=== PATIENT | female | born 1940 | race Hispanic/Latino ===

== ENCOUNTER 2017-02-11 09:02 | Outpatient (CLI) | payer MEDICARE, OTHER | END 2017-02-11 09:03 | disposition home or self-care (01) | LOC: BICMAMMO 09:02 | PROVIDERS: ATTEND Family Medicine | DX: Z12.31 Encounter for screening mammogram for malignant neoplasm of breast (principal) | CPT/HCPCS: 77063; 77067 ==

== ENCOUNTER 2017-06-15 14:18 | Outpatient (CLI) | payer MEDICARE, OTHER | END 2017-06-15 14:19 | disposition home or self-care (01) | LOC: BICMAMMO 14:18 | PROVIDERS: ATTEND Family Medicine | DX: Z13.820 Encounter for screening for osteoporosis (principal); Z78.0 Asymptomatic menopausal state; M81.8 Other osteoporosis without current pathological fracture | CPT/HCPCS: 77080 ==

== ENCOUNTER 2018-03-03 14:31 | Outpatient (CLI) | payer MEDICARE | END 2018-03-03 14:32 | disposition home or self-care (01) | LOC: BICMAMMO 14:31 | PROVIDERS: ATTEND Family Medicine | DX: Z12.31 Encounter for screening mammogram for malignant neoplasm of breast (principal); Z98.82 Breast implant status | CPT/HCPCS: 77063; 77067 ==

== ENCOUNTER 2019-06-13 10:17 | Inpatient (IN) | payer MEDICARE, OTHER ==
[~2019-06-13 10:17] MED LIST: EPINEPHrine 1 MG/10 ML Abboject SYRINGE ONE; Sodium Bicarb 50 MEQ/50 ML Abboject 8.4% SYRINGE ONE
[2019-06-13] MEDS ORDERED: EPINEPHrine 1 MG/10 ML Abboject SYRINGE ONE ×2 (10:29→12:14)
[2019-06-13] MEDS ORDERED: Furosemide 40 MG/4 ML VIAL ONE (10:50)
[2019-06-13] MEDS ORDERED: Furosemide 40 MG TAB ONE (10:50)
--- NOTE | 2019-06-13 11:19 | PDOC.FPRHP ---
- History of Present Illness Chief Complaint: Shortness of breath History of Present Illness: History per ER physician and EMS. Patient called EMS this morning for increasing shortness of breath. When EMS arrived she was unresponsive, and her said she had been that way for about 20 minutes. Additional hx obtained from the patient's (Jesus). He states that the patient has been falling several times over the last 2-3 weeks. She would not lose consciousness, but fell due to unknown reasons. She hit her head a couple of times due to this. Prior to the episode today, she had been complaining of SOB before collapsing. He was not able to state for how long she was down. Over the last couple of weeks she had not been feeling well or like herself, but somewhat distraught and unable to give a detailed history. He stated that he still wanted patient to be full code. Called Dr. Morgan, her PCP, and obtained past medical history. Metoprolol tart 100 bID, amlodipine 10mg, lisinopril 20mg, clonidine 0.1 TID, chlorthalidone 12.5mg, zoloft 200mg, famotidine prn, alprazolam prn, aleve prn ED Course: Arrived CPR in progress. Regained pulse. Coded again, and ROSC x2. Total of about 1 hour of CPR in total (EMS + ER) L femoral central line /4 Intubated 06/12 - Allergies/Adverse Reactions Allergies Allergy/AdvReac Type Severity Reaction Status Date / Time aspirin Allergy Verified 06/13/19 11:58 morphine Allergy Verified 06/13/19 17:23 sulfamethoxazole Allergy Verified 06/13/19 17:23 [From Bactrim] trimethoprim [From Bactrim] Allergy Verified 06/13/19 17:23 - Home Medications Medication Instructions Recorded Confirmed Type ALPRAZolam [Xanax] 0.5 mg PO TID PRN 06/13/19 06/13/19 History Amlodipine Besylate [amLODIPine 10 mg PO DAILY 06/13/19 06/13/19 History Besylate] Chlorthalidone 12.5 mg PO DAILY 06/13/19 06/13/19 History Famotidine 20 mg PO BID PRN 06/13/19 06/13/19 History Lisinopril 20 mg PO DAILY 06/13/19 06/13/19 History Metoprolol Tartrate 100 mg PO BID 06/13/19 06/13/19 History Naproxen Sodium [Aleve] 220 mg PO TID PRN 06/13/19 06/13/19 History Sertraline HCl [Zoloft] 200 mg PO DAILY 06/13/19 06/13/19 History cloNIDine [Catapres] 0.1 mg PO TID 06/13/19 06/13/19 History - History PMH: HTN, Stage III CKD, HLD, chronic swelling, GERD. Guitierrez - aortic regurg, palpitations PSH: breast implants FH: father - afib brother - - heart problems and dm Social History: has 2 sons 2 daughters non-smoker, no illicit drug use. has known alcohol use disorder. She is a retired [employer]. 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 Allergirs: aspirin, morhpine makes her crazy, bactrim (nausea/diearrhea) Vaccines: Prevnar 13 in 2014, Pneumovax 2018, Flu shot 2018, tetanus UTD 2016 - Review of Systems ROS unobtainable: due to endotracheal tube - Vital signs BP: 225/136, Pulse: 127, Resp: BAGGING, End-Tidal CO2: 26, Time: 06/13/2019 10:32 - Physical Exam Constitutional: NAD -Constitutional: Sedated and intubated HEENT: normal nasal mucosa, MMM -HEENT: hematoma posterior scalp; dilated pupils; copious secretions Neck: supple, trachea midline -Neck: intubated Heart: RRR, normal S1/S2, no murmurs/rubs/gallops, pulses present Lungs: no respiratory distress -Lungs: On ventilatory support; rales and rhonchi heard bilaterally, worse on right Abdomen: soft Musculoskeletal: normal structure, normal tone -Neurological: Ventilated/sedated - pupils fixed/dilated, no purposeful movement Skin: no rash/lesions, good turgor Heme/Lymphatic: no unusual bruising or bleeding, no purpura FMR H&P: Results - Labs Result Diagrams: 06/13/19 10:56 06/13/19 10:32 - Radiology Interpretation CT scan - head Status: report reviewed by me Chest x-ray Status: report reviewed by me (Bilateral patchy infiltrates, right greater than left. No pneumothoraces or large effusions are seen) FMR H&P: A/P - Problem List (1) History of successful cardiopulmonary resuscitation Current Visit: Yes Status: Acute Code(s): Z92.89 - PERSONAL HISTORY OF OTHER MEDICAL TREATMENT (2) Shortness of breath Current Visit: Yes Status: Acute Code(s): R06.02 - SHORTNESS OF BREATH (3) COVID-19 Current Visit: Yes Status: Suspected Code(s): U07.1 - COVID-19 (4) Hypertension Current Visit: Yes Status: Acute Code(s): I10 - ESSENTIAL (PRIMARY) HYPERTENSION (5) CKD (chronic kidney disease), stage III Current Visit: Yes Status: Acute Code(s): N18.3 - CHRONIC KIDNEY DISEASE, STAGE 3 (MODERATE) (6) Transaminitis Current Visit: Yes Status: Acute Code(s): R74.0 - NONSPEC ELEV OF LEVELS OF TRANSAMNS & LACTIC ACID DEHYDRGNSE (7) Lactic acidosis Current Visit: Yes Status: Acute Code(s): E87.2 - ACIDOSIS (8) GERD (gastroesophageal reflux disease) Current Visit: Yes Status: Acute Code(s): K21.9 - GASTRO-ESOPHAGEAL REFLUX DISEASE WITHOUT ESOPHAGITIS (9) Elevated troponin Current Visit: Yes Status: Acute Code(s): R79.89 - OTHER SPECIFIED ABNORMAL FINDINGS OF BLOOD CHEMISTRY - Plan Cardiopulmonary arrest s/p ROSC x 2 Unsure etiology at this point. CXR showed bilateral patchy infiltrates, right greater than left. No pneumothoraces or large effusions. - Admit to ICU - Pulm consulted, appreciate recommendations - Head CT pending due to hematoma right scalp and recent falls - COVID pending - Patient is intubated (06/12), sedated, has L Femoral central line (06/12) and on epi drip. Continue ventilatory support. ABGs daily. CXR daily. - Palliative care consulted to help with goals of care, family support. Per , patient to remain FULL code. Acute Hypoxic Resp Failure 2/2 above, CAP - see plan above - CXR showing bilateral patchy infiltrates, R>L - Urinary labs pending, procal pending - Will treat with azithro, rocephin, and methylprednisone - Daily CXR, trend procal to guide abx therapy COVID PUI - COVID pending - LDH, ferritin, CRP and procal pending Transaminitis likely 2/2 shock liver - Will continue to monitor Elevated Tropinin likely 2/2 ACS vs active CPR - Will continue to trend Lactic Acidosis LA 13 on arrival - Will continue to trend HTN - aware, will continue to monitor GERD - aware CKD stage 4 - mildly above baseline, will continue to monitor Dispo: admit to ICU, pending clinical course DVT ppx: hold anticoags until head CT, SCDs GI ppx: Pepcid CODE status: FULL PCP: aCthy Case discussed with Dr. Lake Patient seen, examined, and note written by Cony Maurice, PGY2. FMR H&P: Upper Level - Plan Date/Time: 06/13/191118 I, [], have evaluated this patient and agree with findings/plan as outlined by internal medicine veterinary technician resident. Pertinent changes/additions are listed here. Addendum - Attending - Attending Attestation Date/Time: 06/13/19 190 I personally evaluated the patient and discussed the management with Dr. Maurice I agree with the History, Examination, Assessment and Plan documented above with any addition or exceptions noted below - 79 yo female with h/o HTN, CKD stage 3 and HLD presented after c/o SOB and collapse at home. History per ER physician and EMS. Patient called EMS this morning for increasing shortness of breath. When EMS arrived she was unresponsive, and her said she had been that way for about 20 minutes. Additional hx obtained from the patient's (Jesus). He states that the patient has been falling several times over the last 2-3 weeks. She would not lose consciousness, but fell due to unknown reasons. She hit her head a couple of times due to this. Prior to the episode today, she had been complaining of SOB before collapsing. He was not able to state for how long she was down. Over the last couple of weeks she had not been feeling well or like herself, but somewhat distraught and unable to give a detailed history. Afebrile BP 149/73 P88 RR28 93% Exam repeated by me and agree with resident' s findings. Labs: WBC=22.6, H/H=9.7/30.4, Vrc=425, Na= 142, K= 3.8, CO2=11, BUN/ Cr= 43/2.01, Xsto=181 AST/ALT= 408/230, MDZ=0899, trop=1.235, Lactic acid=13. U/ A- 4+prot, 2+ blood, 21-50 WBC, 3+ bactCXR-patchy b/l infiltrates R>L, CT brain - loss of leigh/white differentiation c/w cerebral cytotoxic edema. A/P: 1) Cardiac arrest x 2 s/p ROSC- Admit to ICU. Continue vent support. Cooling protocol initiated. Consult pulmonary. Poor prognosis given evience of cerebral edema and prolonged time of resuscitation. 2) Possible pneumonia- continue Rocephin and zithromax. COVID-19 pending. 3) Hyperglycemia - no history of diabetes, possibly secondary to acute events. Will monitor BG q6 hours.
--- NOTE | 2019-06-13 11:21 | RAD ---
PORTABLE CHEST 1 VIEW: Date: 06/13/2019 Time: 1117 hours HISTORY: Respiratory failure. FINDINGS/IMPRESSION: There is an endotracheal tube with tip just below the level of the clavicular heads. Nasogastric tube can be traced into the stomach with tip excluded from the film. The heart size is normal. There are bilateral patchy infiltrates, right greater than left. No pneumothoraces or large effusions are seen. POS: MZA
[2019-06-13 11:30] LABS: Hemoglobin 9.7 g/dL (12.0-16.0); Mean Corpuscular HGB CONC 31.9 g/dL (32.0-36.0); Mean Corpuscular Hemoglobin 29.3 pg (27.0-31.0); Mean Corpuscular Volume 91.7 fL (78.0-98.0); Mean Platelet Volume 8.2 fL (7.4-10.4); Platelet Count 165 thou/uL (130-400); RBC Distribution Width 12.7 % (11.5-14.5); Red Blood Cell (RBC) Count 3.32 mill/uL (4.20-5.40); White Blood Cell (WBC) Count 22.6 thou/uL (4.8-10.8)
[2019-06-13 11:36] LABS: INR-International Normal Ratio 1.5; Prothrombin Time 17.8 SEC (12.0-14.7)
[2019-06-13 11:37] LABS: PTT 75.4 SEC (22.9-36.1)
[2019-06-13 11:50] LABS: ALT (SGPT) 230 U/L (8-55); AST (SGOT) 408 U/L (5-34); Alkaline Phosphatase 157 U/L (40-110); Anion Gap 22 mmol/L (10-20); BUN (Urea Nitrogen) 43 mg/dL (9.8-20.1); Bilirubin, Total 0.3 mg/dL (0.2-1.2); CK (CPK) 362 U/L (29-168); Calc. Creatinine Clearance 0 mL/min (70-130); Calcium 8.3 mg/dL (7.8-10.44); Carbon Dioxide 11 mmol/L (23-31); Chloride 113 mmol/L (98-107); Estimated GFR-MDRD 24; Globulin 1.9 g/dL (2.4-3.5); Glucose 295 mg/dL (83-110); Lipase 64 U/L (8-78); Potassium 3.8 mmol/L (3.5-5.1); Protein, Total 3.9 g/dL (6.0-8.3); Sodium 142 mmol/L (136-145)
[2019-06-13 11:57] LABS: Actual Bicarbonate (HCO3a) 9.3 mEq/L (22-28); Analyzer IN Cardio ER; Base Excess (BEa) -21.1 mEq/L (-2.0 to +3.0); Calcium, Ionized 1.29 mmol/L (1.12-1.30); Carboxyhemoglobin (COHb) 0.1 gm% (0.0-3.0); Hemoglobin (Hb) 10.4 g/dL (12.0-16.0); O2 Tension (PaO2) 367.5 mmHg (> 60.0); Potassium - ABG Lab 3.97 mmol/L (3.70-5.30); pH, Arterial 6.99 (7.35-7.45)
[2019-06-13 11:58] LABS: Puncture Site RRA
[2019-06-13 12:06] LABS: Band 4 % (5-11); Lymphocytes 50 % (21-51); MDiff Complete? YES; Monocytes 6 % (0-10); Myelocyte 1 % (0-0); Neutrophil 39 % (42-75); Polychromasia SLIGHT = 2-3 cells (100X) (0-2/hpf)
[2019-06-13 12:19] LABS: CKMB 18.3 ng/mL (0-6.6)
[2019-06-13] MEDS ORDERED: CCU Electrolyte Replacement 1 EACH IVPB ONE (13:10)
[2019-06-13] MEDS ORDERED: Ondansetron PF 4 MG/2 ML Vial IVP PRN (13:10)
[2019-06-13] MEDS ORDERED: Acetaminophen 650 MG Suppository PR PRN (13:12)
[2019-06-13] MEDS ORDERED: Ventilator Sedation Protocol 1 EACH FS SCH (13:15)
[2019-06-13] MEDS ORDERED: Morphine 2 MG/ML SYRINGE SLOW IVP PRN (13:27)
[2019-06-13] MEDS ORDERED: Lorazepam 2 MG/ML VIAL SLOW IVP PRN (13:27)
[2019-06-13] MEDS ORDERED: Fentanyl BOLUS 250 ML IVPB PRN (13:27)
[2019-06-13] MEDS ORDERED: DISCONTINUE PREVIOUS NARCOTIC PAIN MEDICATIONS AND BENZODIAZEPINES FS SCH (13:27)
[2019-06-13] MEDS ORDERED: Propofol BOLUS 1,000 MG/100 ML VIAL IV PRN (13:27)
[2019-06-13] MEDS ORDERED: fentaNYL Citrate/PF 2,000 MCG in Sodium Chloride 0.9% 60 ML IV SCH (13:27)
[2019-06-13] MEDS ORDERED: Propofol 1,000 MG/100 ML VIAL IV PRN (13:27)
[2019-06-13] MEDS ORDERED: PHOS-NAK 1 PKT PACK PO PRN ×2 (13:28)
[2019-06-13] MEDS ORDERED: CCU ELECTROLYTE REPLACEMENT PROTOCOL FS PRN (13:28)
[2019-06-13] MEDS ORDERED: Potassium Chloride 40 MEQ in Premix Bag 1 BAG IVPB PRN (13:28)
[2019-06-13] MEDS ORDERED: Potassium Chloride 20 MEQ TAB PO PRN (13:28)
[2019-06-13] MEDS ORDERED: Potassium Chloride 40 MEQ in Sodium Chloride 0.9% 250 ML 250 ML IVPB PRN (13:28)
[2019-06-13] MEDS ORDERED: Potassium Phosphate 12 MMOL in Sodium Chloride 0.9% 250 ML 250 ML IV PRN (13:28)
[2019-06-13] MEDS ORDERED: Magnesium Oxide 400 MG TAB PO PRN ×2 (13:28)
[2019-06-13] MEDS ORDERED: Potassium Phosphate 15 MMOL in Sodium Chloride 0.9% 250 ML 250 ML IV PRN (13:28)
[2019-06-13] MEDS ORDERED: Magnesium 2 GM/50 ML 2 GM in Premix Bag 1 BAG IVPB PRN (13:28)
[2019-06-13] MEDS ORDERED: Potassium Phosphate 9 MMOL in Sodium Chloride 0.9% 100 ML IVPB PRN (13:28)
[2019-06-13] MEDS ORDERED: Lactated Ringer's 1,000 ML IV SCH ×2 (14:00→16:15)
--- NOTE | 2019-06-13 14:05 | CT ---
CT BRAIN NONCONTRAST: DATE: 06/13/2019 HISTORY: 79-year-old female with altered mental status: Unresponsive. Status post CPR. COMPARISON: none FINDINGS: External electronic device causes streak artifact, severely partially obscuring portions of the brain , including upper right cerebellum and right temporal lobes. There is diffuse loss of leigh matter-white matter differentiation, consistent with diffuse global cer ebral cytotoxic edema. No mass effect, midline shift, acute calvarial fracture, obstructive hydrocephalus, or extra-axial fluid collection. Thin elongated hyperdense structures along the anterior interhemispheric falx may represent en plaque meningiomas. They are somewhat less likely to represent acute small subdural hematomas. They do not cause mass effect. Otherwise no definite acute intracranial hemorrhage. Total opacification of nasal cavity and nasopharyngeal airway by secretions. Air-fluid levels in maxi llary sinuses. Right occipital superficial soft tissue hematoma. IMPRESSION: 1. Evidence for global cerebral acute hypoxic/ischemic injury, suspicious for brain . 2. Acute, traumatic right occipital scalp hematoma. 3. Thin hyperdense extra-axial lesion along anterior interhemispheric falx. See above comments.
[2019-06-13 14:15] LABS: Base Excess (BEa) -16.4 mEq/L (-2.0 to +3.0); CO2 Tension 37.7 mmHg (35.0-45.0); Calcium, Ionized 1.14 mmol/L (1.12-1.30); Carboxyhemoglobin (COHb) 0.7 gm% (0.0-3.0); Hemoglobin (Hb) 11.5 g/dL (12.0-16.0); O2 Tension (PaO2) 74.7 mmHg (> 60.0); Potassium - ABG Lab 3.66 mmol/L (3.70-5.30)
[2019-06-13 14:19] LABS: ALV-art Gradient 234.675 (0-20); Puncture Site RRA; pH, Arterial 7.12 (7.35-7.45)
[2019-06-13] MEDS ORDERED: methylPREDNISolone Sod Succ/PF 125 MG/2 ML VIAL IVP SCH (14:30)
[2019-06-13] MEDS ORDERED: Azithromycin 500 MG in Sodium Chloride 0.9% 250 ML 250 ML IVPB SCH (14:30)
[2019-06-13] MEDS ORDERED: Acetaminophen 325 MG TAB PER TUBE PRN (14:32)
[2019-06-13 15:21] LABS: Lactic Acid 11.2 mmol/L (0.5-2.2)
[2019-06-13] MEDS: Sodium Bicarbonate 140 MEQ in Dextrose 5% in Water 1,000 ML IV SCH (15:27)
[2019-06-13] MEDS ORDERED: cefTRIAXone\\ROCEPHIN 1 GM in Sodium Chloride 0.9% 100 ML IVPB SCH (16:00)
[2019-06-13 18:09] LABS: Bacteria/HPF 3+ HPF (None Seen); Bilirubin Negative (Negative); Blood, Urine 2+ (Negative); Clarity Turbid (Clear); Glucose, Urine (Dipstick) 300 mg/dL (Negative); Leukocyte Negative Leu/uL (Negative); Nitrite Negative (Negative); Protein, Urine (Dipstick) 300 mg/dL (Neg-Trace); RBC/HPF 21-50 HPF (0-3); Transitional Epithelial 0-3 HPF (None Seen); Urobilinogen Normal mg/dL (Less than 2); WBC/HPF 21-50 HPF (0-3)
[2019-06-13 18:33] LABS: Legionella Urinary Ag Negative (Negative); Strep pneumo Urine Ag POSITIVE (NEGATIVE)
[2019-06-13 18:50] LABS: SARS-CoV-2 MS2 Positive; SARS-CoV-2 N Gene Negative; SARS-CoV-2 S Gene Negative; SARS-CoV-2 orf1ab Negative
[2019-06-13] MEDS: Famotidine/PF 20 mg/2ml Vial SLOW IVP SCH (20:09)
[2019-06-13] MEDS: EPINEPHrine 4 MG in Dextrose 5% in Water 250 ML IV SCH (20:43)
--- NOTE | 2019-06-13 21:16 | CON ---
DATE OF CONSULTATION: 06/13/2019 CONSULTING PHYSICIAN: Dr. Lake from [facility]. REASON FOR CONSULTATION: Status post arrest. Following encompassed 70 minutes of critical care time. HISTORY OF PRESENT ILLNESS: The patient is an 79-year-old female, who was apparently found down unresponsive today. Prior to the paramedics arriving, she had been unresponsive for about 20 minutes without any bystander CPR. According to the history and physical, the patient had been following several times over the last 2 to 3 weeks and has been complaining of shortness of breath before collapsing. She was down for a significant amount of time. After being seen by EMS, I have calculated this about an hour total. She has a left femoral central line and she is intubated with 6.5 endotracheal tube. PAST MEDICAL HISTORY: 1. Hypertension. 2. Chronic kidney disease. 3. Hyperlipidemia. 4. Gastroesophageal reflux. 5. Aortic regurgitation. PAST SURGICAL HISTORY: Bilateral breast implants. FAMILY MEDICAL HISTORY: Remarkable for atrial fibrillation and diabetes mellitus. SOCIAL HISTORY: Nonsmoker. Does not use illicit drugs. Does not consume alcohol. ALLERGIES: ASPIRIN, MORPHINE, AND BACTRIM. SHE IS UP TO DATE ON HER INFLUENZA PREVNAR AND PNEUMOVAX VACCINES. REVIEW OF SYSTEMS: Cannot be obtained. PHYSICAL EXAMINATION: VITAL SIGNS: Heart rate 91, blood pressure 140/81, O2 saturation 92%, respiratory rate 27. Last measured temperature was 94.5. NEUROLOGIC: She is not currently paralyzed or sedated. She has myoclonic jerking activity in her neck. She has 2 mm pupils that are unreactive to light. She has no withdrawal to deep painful stimuli. She had no spontaneous respirations, except for those respiration triggered by the myoclonic jerking in the neck. HEENT: Otherwise, unremarkable. NECK: No adenopathy or JVD. LUNGS: Coarse rhonchi bilaterally. CARDIOVASCULAR: S1 and S2 regular without murmur. ABDOMEN: Soft. No hepatosplenomegaly. EXTREMITIES: She has a left femoral central line with some bleeding. LABORATORY DATA: White blood cell count 22.6, hematocrit 30.4, platelet count 165. INR is 1.5. D-dimer greater than 20. A pH 7.12, pCO2 of 37, pO2 of 74, that is on SIMV rate 28, tidal volume 500, PEEP 5, FiO2 of 60%. Lactate level is 13.2, ferritin 3400. Sodium 142, potassium 3.8, chloride 113, CO2 of 11, BUN 43, creatinine 2.0, glucose 295. Troponin 1.23. Procalcitonin level 0.02. Chest x-ray shows infiltrative changes on the right. ASSESSMENT: 1. Status post cardiac arrest. 2. Prolonged downtime. 3. Probable aspiration pneumonitis. 4. The patient currently on rule out COVID status. PLAN: 1. The predominance of evidence would suggest that this arrest was likely due to sudden cardiac , especially given the history of falls over the last several days. Her prolonged downtime is an ominous sign and her current neurologic exam looks fairly more phillips. I would recommend general supportive care with mechanical ventilation. Start a bicarbonate drip to help compensate for the acidosis. 2. Await rule out COVID test, although I suspect this will probably come back negative. 3. Recommend DNR status. She will likely improve. Job ID: [id number]
[2019-06-14] MEDS: Sodium Bicarbonate 140 MEQ in Dextrose 5% in Water 1,000 ML IV SCH (00:23)
[2019-06-14] MEDS: EPINEPHrine 4 MG in Dextrose 5% in Water 250 ML IV SCH ×2 (02:28→06:01)
[2019-06-14] MEDS ORDERED: Norepinephrine 8 MG/0.9% NS 250 ML ONE (02:41)
[2019-06-14] MEDS ORDERED: Norepinephrine 8 MG/0.9% NS 250 ML IVPB SCH (02:47)
[2019-06-14 03:22] VITALS: BP 82/59
[2019-06-14 04:50] LABS: Band 10 % (5-11); Eosinophils 1 % (0-10); Hemoglobin 8.7 g/dL (12.0-16.0); Lymphocytes 24 % (21-51); MDiff Complete? YES; Mean Corpuscular HGB CONC 30.3 g/dL (32.0-36.0); Mean Corpuscular Hemoglobin 29.2 pg (27.0-31.0); Mean Corpuscular Volume 96.3 fL (78.0-98.0); Mean Platelet Volume 6.6 fL (7.4-10.4); Metamyelocyte 1 % (0-0); Monocytes 6 % (0-10); Neutrophil 58 % (42-75); Platelet Count 147 thou/uL (130-400); Platelet Morphology Comment Appears Adequate; Red Blood Cell (RBC) Count 2.97 mill/uL (4.20-5.40); White Blood Cell (WBC) Count 35.7 thou/uL (4.8-10.8)
[2019-06-14 04:59] LABS: ALT (SGPT) 1458 U/L (8-55); AST (SGOT) 2691 U/L (5-34); Albumin 1.9 g/dL (3.4-4.8); Alkaline Phosphatase 188 U/L (40-110); BUN (Urea Nitrogen) 46 mg/dL (9.8-20.1); Bilirubin, Total 1.5 mg/dL (0.2-1.2); Calc. Creatinine Clearance 17 mL/min (70-130); Calcium 7.3 mg/dL (7.8-10.44); Carbon Dioxide Less than 8 mmol/L (23-31); Chloride 105 mmol/L (98-107); Estimated GFR-MDRD 15; Globulin 1.8 g/dL (2.4-3.5); Glucose 172 mg/dL (83-110); Potassium 4.5 mmol/L (3.5-5.1); Protein, Total 3.7 g/dL (6.0-8.3); Sodium 142 mmol/L (136-145)
[2019-06-14 05:14] LABS: Actual Bicarbonate (HCO3v) 6 mEq/L (22-28); Base Excess -27.6 mEq/L (-2.0 to +3.0); Chloride (ABG LAB) 102 mmol/L (98-106); Hemoglobin (Hb) 8.4 g/dL (11.7-16.1); Potassium - ABG Lab 4.64 mmol/L (3.70-5.30); Sodium 138.7 mmol/L (133-146)
[2019-06-14 05:16] LABS: pH (venous) 6.77 (7.32-7.43)
[2019-06-14 05:17] VITALS: TEMP 98.4
[2019-06-14 07:29] LABS: Actual Bicarbonate (HCO3a) 3.3 mEq/L (22-28); Calcium, Ionized 0.98 mmol/L (1.12-1.30); Carboxyhemoglobin (COHb) 0.7 gm% (0.0-3.0); Hemoglobin (Hb) 7.5 g/dL (12.0-16.0); O2 Tension (PaO2) 118.1 mmHg (> 60.0); Potassium - ABG Lab 5.29 mmol/L (3.70-5.30)
--- NOTE | 2019-06-14 07:30 | PDOC.FM ---
- Subjective Subjective: NAEO. Patient remains on the ventilator. Patient's COVID test resulted negative yesterday evening. No concerns per nursing. - Objective MAR Reviewed: Yes Vital Signs & Weight: Vital Signs (12 hours) Temp Pulse Resp BP Pulse Ox 06/14/19 07:17 72 06/14/19 06:00 28 H 06/14/19 04:00 98.4 F 28 H 06/14/19 03:20 72 82/59 L 06/14/19 02:00 28 H 06/14/19 01:01 81 106/47 L 06/14/19 00:00 98.6 F 28 H 06/13/19 22:00 28 H 06/13/19 21:47 96 125/80 06/13/19 20:00 28 H 100 Weight Weight 73.6 kg Most Recent Monitor Data Heart Rate from ECG 71 NIBP 106/68 NIBP BP-Mean 80 Respiration from ECG 28 SpO2 100 I&O: 06/13/19 06/14/19 06/15/19 06:59 06:59 06:59 Intake Total 3155.4 Output Total 15 Balance 3140.4 Result Diagrams: 06/14/19 04:12 06/14/19 04:12 Phys Exam - Physical Examination Constitutional: NAD HEENT: sclera anicteric dry MM Neck: supple mild rhonchi heard in right ant chest; clear left ant chest Cardiovascular: RRR, no significant murmur Gastrointestinal: soft, no distention pupils fixed, no movement, no withdrawal to pain, no gag reflex, no DTR Skin: cap refill <2 seconds Dx/Plan (1) History of successful cardiopulmonary resuscitation Code(s): Z92.89 - PERSONAL HISTORY OF OTHER MEDICAL TREATMENT Status: Acute (2) Shortness of breath Code(s): R06.02 - SHORTNESS OF BREATH Status: Acute (3) COVID-19 Code(s): U07.1 - COVID-19 Status: Suspected (4) Hypertension Code(s): I10 - ESSENTIAL (PRIMARY) HYPERTENSION Status: Acute (5) CKD (chronic kidney disease), stage III Code(s): N18.3 - CHRONIC KIDNEY DISEASE, STAGE 3 (MODERATE) Status: Acute (6) Transaminitis Code(s): R74.0 - NONSPEC ELEV OF LEVELS OF TRANSAMNS & LACTIC ACID DEHYDRGNSE Status: Acute (7) Lactic acidosis Code(s): E87.2 - ACIDOSIS Status: Acute (8) GERD (gastroesophageal reflux disease) Code(s): K21.9 - GASTRO-ESOPHAGEAL REFLUX DISEASE WITHOUT ESOPHAGITIS Status: Acute (9) Elevated troponin Code(s): R79.89 - OTHER SPECIFIED ABNORMAL FINDINGS OF BLOOD CHEMISTRY Status : Acute - Plan Plan: Cardiopulmonary arrest s/p ROSC x 2 Unsure etiology at this point - likely sudden cardiac . Prolonged down time. CXR showed bilateral patchy infiltrates, right greater than left. No pneumothoraces or large effusions. - Pulm consulted, appreciate recommendations. - Head CT showing no differentiation of leigh/white matter. Overall, dismal prognosis. - Nuclear brain scan pending. Brain by exam. - Patient is intubated (06/12), no sedation, has L Femoral central line (06/12) and on epi & bicarb drip. Continue ventilatory support. ABGs daily. CXR daily. - Continue supportive care - Palliative care consulted to help with goals of care, family support. Patient' s condition terminal. COVID NEGATIVE 06/12 Acute Hypoxic Resp Failure 2/2 above, CAP - see plan above - CXR showing bilateral patchy infiltrates, R>L - Procal neg, but will trend; urinary strep ag positive - Continued on rocephin; azithro and steroids cancelled by pulm. - Daily CXR, trend procal Metabolic Acidosis - Indicative of severe end organ ischemia - On bicarb drip to help compensate ARF, CKD stage4 - worsening, continue to monitor Transaminitis 2/2 shock liver - Worsening, will continue to monitor Elevated Tropinin likely 2/2 ACS vs active CPR Lactic Acidosis LA 13 on arrival - Will continue to trend HTN - aware, will continue to monitor GERD - aware Dispo: very guarded prognosis DVT ppx: lovenox GI ppx: Pepcid CODE status: DNR - chemical code only PCP: Cathy Case discussed with Dr. Lake Addendum - Attending - Attending Attestation Date/Time: 06/14/19 [id number] I personally evaluated the patient and discussed the management with Dr. Maurice I agree with the History, Examination, Assessment and Plan documented above with any addition or exceptions noted below - Patient intubated. No spontaneous movement, pupils dilated and fixed. Afebrile SBP=60s. P71 Urine output 15mL over last 20 hours A/P: 1) Cardiac arrest s/p ROSC with prolonged resuscitation - continue supportive carfamily.e; plan for brain scan this morning to confirm clinical diagnosis of brain 2) Severe metabolic acidosis with end organ ischemia - not responsive to bicarb drip and ventilation. Extremely poor prognosis will discuss with family.
[2019-06-14 07:31] LABS: CO2 Tension 18.1 mmHg (35.0-45.0); pH, Arterial 6.87 (7.35-7.45)
[2019-06-14 07:32] LABS: ALV-art Gradient 287.075 (0-20); Puncture Site RRA
--- NOTE | 2019-06-14 08:49 | RAD ---
PORTABLE CHEST: COMPARISON: Prior day's study. HISTORY: Pneumonia. FINDINGS: Endotracheal and NG tubes are in satisfactory position. There has been some improvement to the patch y bilateral infiltrates. Changes in the right upper lobe have improved as compared to that prior exa mination. Some of the changes in the right base are slightly worsened, probably just related to poor inspiration. Increased retrocardiac density is now present which could indicate some atelectasis. IMPRESSION: Some improvement to the right perihilar and upper lobe as well as left upper lobe parenchymal change. However, slight worsening to the bibasilar lung changes. POS: MIAH
--- NOTE | 2019-06-14 08:58 | PRG ---
DATE OF SERVICE: Thirty-five minutes critical care time. SUBJECTIVE: This patient remains intubated on mechanical ventilation. OBJECTIVE: VITAL SIGNS: Pulse 67, blood pressure 108/66, O2 saturation 100%, and temperature 98.4. Intake 3155, output 15 mL. NEUROLOGIC: I found a reflexive throughout, it does not withdraw to pain. Has pupils are 2 mm and nonreactive to light. Has no oculocephalic reflex. Has no gag reflex. Has no spontaneous respirations. Has no further seizure-type activity or myoclonic jerking. HEENT: Otherwise unchanged. NECK: No adenopathy or JVD. CHEST: Coarse rhonchi. CARDIAC: S1 and S2. Regular. ABDOMEN: Soft. EXTREMITIES: No edema. LABORATORY DATA: COVID test was negative. Strep pneumonia antigen was positive. White blood cell count 35.7, hematocrit 28.6, and platelet count 147. PH 6.87, pCO2 of 18, PO2 of 118 on SIMV rate 20, tidal volume 400, PEEP 8, pressure support 10, FiO2 of 60%. Sodium 142, potassium 4.5, chloride 105, CO2 less than 8, BUN 46, creatinine 2.9, glucose 172. Urinalysis shows copious white blood cells. Chest x-ray shows bilateral infiltrative changes right greater than left. ASSESSMENT: 1. Status post prolonged cardiac arrest at least 1 hour in totality. 2. Severe metabolic acidosis indicative of severe end-organ ischemia. 3. Clinical brain by exam. 4. Acute renal failure. 5. Acute respiratory failure requiring mechanical ventilation. PLAN: 1. Cerebral brain flow study to confirm brain findings. 2. Generalized supportive care otherwise. The patient's condition is terminal and she will not survive. Job ID: [id number]
[2019-06-14] MEDS ORDERED: methylPREDNISolone Sod Succ/PF 125 MG/2 ML VIAL IVP SCH (09:00)
[2019-06-14] MEDS ORDERED: Enoxaparin Sodium 40 MG/0.4 ML SYRINGE SC SCH (09:00)
[2019-06-14] MEDS: Famotidine/PF 20 mg/2ml Vial SLOW IVP SCH (09:55)
--- NOTE | 2019-06-14 11:33 | NM ---
Radionucleotide brain cerebral flow study for brain HISTORY: Confirm brain . FINDINGS: Immediately after injection, the patient's heart stopped. She quickly . Imaging out to 1 minute showed contrast flow to the carotid arteries and brain base without perfusion of the cerebrum. While the exam is technically incomplete, early findings are suggestive of brain at the initiat ion of the procedure.
[2019-06-14] MEDS ORDERED: Azithromycin 250 MG in Sodium Chloride 0.9% 500 ML IVPB SCH (15:00)
[2019-06-14 15:13] VITALS: BMI 28.7
--- NOTE | 2019-06-15 03:01 | DIS ---
DATE OF ADMISSION: 06/13/2019 DATE OF DISCHARGE: 06/14/2019 ATTENDING: Nimisha Lake MD RESIDENT: Cony Maurice MD DATE OF : 06/14/2019. TIME OF : 10:59 CAUSE OF : Severe metabolic acidosis. SECONDARY DIAGNOSES: 1. Hypertension. 2. Stage III chronic kidney disease. 3. Hyperlipidemia. 4. Gastroesophageal reflux disease. HOSPITAL COURSE: This is an 79-year-old female, who presented to the ER by EMS. The patient's had called EMS due to the patient being increasingly short of breath becoming unresponsive. The patient had been down for 10 minutes with the at home prior to EMS arrival. Per the , the patient had fallen several times over the course of the last 2- 3 weeks. He even reported to the basket filler that he had performed CPR on her at some point over the previous week. Per the , over the last week or so, she had not been feeling herself and was increasingly short of breath. In the ER, the patient arrived with CPR in progress and regained ROSC. She coded again and achieved ROSC again. The total amount of time in CPR was about 1 hour. A left femoral central line was placed and the patient was intubated. She was admitted to the ICU for cardiopulmonary arrest, status post ROSC x2. Pulmonology was consulted. A head CT done at the time of admission showed evidence of global cerebral acute hypoxic and ischemic injury suspicious for brain . The patient was started on and epi and bicarb drip. Due to the patient's history, she was swabbed for COVID and this resulted negative. She was started on antibiotics to cover for a superimposed bacterial pneumonia. Overnight, there were no acute events, but the patient continued to have no purposeful movements and her blood pressure was difficult to maintain. Palliative Care was consulted to help assess the prognosis with the family as well as provide family support. After discussion with the family, they decided to make the patient chemical only resuscitation. A nuclear brain scan performed on the day of showed no perfusion to the cerebrum. The patient shortly after the scan was performed. Job ID: [id number] [facility]
[2019-06-15] MEDS ORDERED: Enoxaparin Sodium 30 MG/0.3 ML SYRINGE SC SCH (09:00)
--- NOTE | 2019-06-16 02:09 | PQF ---
SARA MACK Anna MD [id number] CLINICAL DOCUMENTATION CLARIFICATION FORM: POST DISCHARGE Addendum to original discharge summary date: ____ Late entry note date: __ DATE:06/16/2019 ATTN:Nimisha Lake MD Please exercise your independent, professional judgment in responding to the clarification form. Clinical indicators are provided on the bottom of this form for your review Please check appropriate box(s): AMI TYPE: [ ] Acute Coronary Syndrome (ACS) without Acute CO meaning Unstable Angina [ ] NSTEMI (CO type I) [ ] NSTEMI due to Demand Ischemia (AMI Type II) [ ] Demand Ischemia without CO [ ] STEMI (please also specify site and arterysee below) If STEMI, SITE:[ ] Anterior [ ] Apical [ ] Lateral [ ] Inferior [ ] Posterior [ ] Q Wave [ ] Septal [ ] Unable to Determine SPECIFIC ARTERY (Based on site) [ ] Left Main Coronary[ ] Diagonal [ ] Left Anterior Descending[ ] Oblique Marginal [ ] Right Coronary Artery[ ] Unable to Determine [ ] Left Circumflex [ x ] Elevated troponin only [ ] Other diagnosis [ ] Unable to determine In addition, please specify: Present on Admission (POA): [ x ] Yes [ ] No [ ] Unable to determine CLINICAL INDICATORS - SIGNS / SYMPTOMS / LABS -Elevated troponin likely 2/2 ACS vs active CPR- [facility] medicine H&P, 06/12, Jaya Bansal MD -Troponin: 1.235H-Laboratory report, 06/12 -Severe metabolic acidosis indicative of severe end-organ ischemia- [facility] medicine H&P, 06/12, Jaya Bansal MD RISKS: - Cardiac arrest- [facility] medicine H&P, 06/12, Jaya Bansal MD - PMH: HTN- [facility] medicine H&P, 06/12, Jaya Bansal MD - Allergy: Aspirin- Family medicine H&P, 06/12, Jaya Bansal MD TREATMENTS: -CPR-Consultation, 06/12, Jaya Bansal MD -Bicarb drip and ventilation-06/12 (This form is maintained as a part of the permanent medical record) 2014 [employer]. All Rights Reserved [email or web address]
== END 2019-06-14 10:59 | disposition expired | DRG 296 ==
LOC: ERS 10:17 → CCU 13:41
PROVIDERS: ADMIT Family Medicine; ATTEND Family Medicine
PROC: 5A12012 Performance of Cardiac Output, Single, Manual (ICD-10-PCS; principal; 2019-06-13)
PROC: 02HV33Z Insertion of Infusion Device into Superior Vena Cava, Percutaneous Approach (ICD-10-PCS; 2019-06-13)
PROC: 0BH17EZ Insertion of Endotracheal Airway into Trachea, Via Natural or Artificial Opening (ICD-10-PCS; 2019-06-13)
PROC: 8E0ZXY6 Isolation (ICD-10-PCS; 2019-06-13)
PROC: 5A1945Z Respiratory Ventilation, 24-96 Consecutive Hours (ICD-10-PCS; 2019-06-13)
DX: I46.9 Cardiac arrest, cause unspecified (principal); J15.9 Unspecified bacterial pneumonia; K72.00 Acute and subacute hepatic failure without coma; J96.01 Acute respiratory failure with hypoxia; E87.2 Acidosis; Z66 Do not resuscitate; Z51.5 Encounter for palliative care; Z20.828 Contact with and (suspected) exposure to other viral communicable diseases; E78.5 Hyperlipidemia, unspecified; K21.9 Gastro-esophageal reflux disease without esophagitis; I12.9 Hypertensive chronic kidney disease with stage 1 through stage 4 chronic kidney disease, or unspecified chronic kidney disease; N18.3 Chronic kidney disease, stage 3 (moderate); R74.0 Nonspecific elevation of levels of transaminase and lactic acid dehydrogenase [LDH]; I35.1 Nonrheumatic aortic (valve) insufficiency; Z88.6 Allergy status to analgesic agent; Z88.8 Allergy status to other drugs, medicaments and biological substances; Z91.81 History of falling; Z79.01 Long term (current) use of anticoagulants; Z86.711 Personal history of pulmonary embolism
CPT/HCPCS: 36416; 70450; 71045; 78610; 80053; 81001; 82550; 82553; 82728; 82805; 83605; 83615; 83690; 83880; 84145; 84484; 85025; 85379; 85610; 85730; 86140; 87040; 87449; 87635; 87899; 93005; 94002; 94003; A9521; J0171; J0456; J0696; J1650; J1940; J2930; J3490; J7050; J7070; S0028; U0003